=== PATIENT | male | born 1990 | race Caucasian/White ===

== ENCOUNTER 2020-04-12 08:12 | Emergency (ER) | payer SELFPAY ==
[2020-04-12] MEDS ORDERED: Ketorolac 15 MG/ML SDV IM ONE (08:41)
[2020-04-12] MEDS ORDERED: Acetaminophen 500 MG Tab PO ONE (08:41)
[2020-04-12] MEDS ORDERED: Dexamethasone 10 MG/ML SDV IM ONE (08:41)
[2020-04-12] MEDS ORDERED: Diazepam 2 MG Tab PO ONE (08:41)
--- NOTE | 2020-04-12 08:49 | EDM.PDOC ---
ED HPI GENERAL MEDICAL PROBLEM - General Chief Complaint: Back Pain or Injury Stated Complaint: MID BACK PAIN RT SIDE Time Seen by Provider: 04/12/20 08:17 Source of Information: Reports: Patient History Limitations: Reports: No Limitations - History of Present Illness INITIAL COMMENTS - FREE TEXT/NARRATIVE: 29M PMHx back pain from work injury presents for R sided middle/lower back pain worsening over last several days. 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 He feels that he was overusing his back a few days ago at work and afterwards had R middle/lower back pain. Took motrin and pain was getting better, but woke up around 3AM with acutely worse pain. Took motrin and was able to get back to sleep but woke up and pain had recurred. Feels he is unable to work today. Denies N/V, abdominal pain, hematuria/dysuria, urinary or bowel incontinence or retention, lower extremity muscle weakness/paralysis, or saddle/groin anaesthesia. Middle Back Pain Score (Numeric/FACES): 3 - Related Data Allergies Allergy/AdvReac Type Severity Reaction Status Date / Time No Known Allergies Allergy Verified 04/12/20 08:23 Home Meds: Home Meds Ibuprofen [Motrin] 600 mg PO Q6H PRN 10 Days #28 tab 04/12/20 [Rx] diazePAM [Valium] 1 mg PO TID PRN 3 Days #9 tab 04/12/20 [Rx] Past Medical History Musculoskeletal History: Reports: Back Pain, Chronic - Infectious Disease History Infectious Disease History: Reports: Chicken Pox Social & Family History - Family History Family Medical History: Noncontributory - Tobacco Use Smoking Status *Q: Current Every Day Smoker Years of Tobacco use: 4 Packs/Tins Daily: 1 Used Tobacco, but Quit: No Second Hand Smoke Exposure: No - Caffeine Use Caffeine Use: Reports: Coffee, Energy Drinks - Recreational Drug Use Recreational Drug Use: No ED ROS GENERAL - Review of Systems Review Of Systems: Comprehensive ROS is negative, except as noted in HPI. ED EXAM,LOWER BACK PAIN/INJURY - Physical Exam Exam: See Below Exam Limited By: No Limitations General Appearance: Alert, WD/WN, No Apparent Distress Throat/Mouth: Normal Voice, No Airway Compromise Head: Atraumatic, Normocephalic Neck: Normal Inspection Respiratory/Chest: No Respiratory Distress Cardiovascular: Normal Peripheral Pulses GI/Abdominal: Soft, Non-Tender Back Exam: Normal Inspection, Muscle Spasm, Paraspinal Tenderness. No: CVA Tenderness (L), CVA Tenderness (R), Vertebral Tenderness Extremities: Normal Inspection Neurological: Alert, Normal Mood/Affect Psychiatric: Normal Affect, Normal Mood Skin Exam: Warm, Dry, Intact, Normal Color, No Rash Course - Vital Signs Last Recorded V/S: Last Vital Signs Temp 97.3 F 04/12/20 08:23 Pulse 67 04/12/20 08:23 Resp 13 04/12/20 08:23 BP 123/86 04/12/20 08:23 Pulse Ox 99 04/12/20 08:23 - Orders/Labs/Meds Meds: Medications Discontinued Medications Generic Name Dose Route Start Last Admin Trade Name Freq PRN Reason Stop Dose Admin Acetaminophen 1,000 mg 04/12/20 08:41 04/12/20 08:57 Tylenol Extra Strength PO 04/12/20 08:42 1,000 mg ONETIME ONE Administration Dexamethasone 8 mg 04/12/20 08:41 04/12/20 08:57 Dexamethasone IM 04/12/20 08:42 8 mg ONETIME ONE Administration Diazepam 2 mg 04/12/20 08:41 04/12/20 08:57 Valium PO 04/12/20 08:42 2 mg ONETIME ONE Administration Ketorolac Tromethamine 15 mg 04/12/20 08:41 04/12/20 08:57 Toradol IM 04/12/20 08:42 15 mg ONETIME ONE Administration - Re-Assessments/Exams Free Text/Narrative Re-Assessment/Exam: 04/12/20 08:47 Will treat back pain symptomatically with toradol/decadron/tylenol/valium. Low suspicion clinically serious causes of back pain in absence of red flag signs/symptoms. Low suspicion renal stone as patient has no urinary symptoms and known work injury/overuse. Departure - Departure Time of Disposition: 08:54 Disposition: Home, Self-Care 01 Condition: Good Clinical Impression: Back pain Qualifiers: Back pain location: low back pain Chronicity: acute Back pain laterality: right Sciatica presence: without sciatica Qualified Code(s): M54.5 - Low back pain - Discharge Information Prescriptions: Ibuprofen [Motrin] 600 mg PO Q6H PRN 10 Days #28 tab PRN Reason: Pain diazePAM [Valium] 1 mg PO TID PRN 3 Days #9 tab PRN Reason: Muscle Spasm Referrals: PCP,None [Primary Care Provider] - Forms: ED Department Discharge, ED Return to Work/School Form Additional Instructions: The following information is given to patients seen in the emergency department who are being discharged to home. This information is to outline your options for follow-up care. We provide all patients seen in our emergency department with a follow-up referral. The need for follow-up, as well as the timing and circumstances, are variable depending upon the specifics of your emergency department visit. If you don't have a primary care physician on staff, we will provide you with a referral. We always advise you to contact your personal physician following an emergency department visit to inform them of the circumstance of the visit and for follow-up with them and/or the need for any referrals to a consulting specialist. The emergency department will also refer you to a specialist when appropriate. This referral assures that you have the opportunity for follow-up care with a specialist. All of these measure are taken in an effort to provide you with optimal care, which includes your follow-up. Under all circumstances we always encourage you to contact your private physician who remains a resource for coordinating your care. When calling for follow-up care, please make the office aware that this follow-up is from your recent emergency room visit. If for any reason you are refused follow-up, please contact the [facility] Emergency Department at and asked to speak to the emergency department charge nurse. Please follow up with your primary care physician. If you do not have a primary care physician, see below: [facility] [address] [place] [id number] [facility] [address] [place] [address] We unfortunately do not have a local neurosurgeon; most primary physicians will be comfortable ordering an MRI for you, but you may require follow-up with a specialist. [facility] is the closest neurosurgery program I know for referral. Their phone number is [phone]. Ask for the neurosurgery department. Sepsis Event Note (ED) - Evaluation Sepsis Screening Result: No Definite Risk - Focused Exam Vital Signs: Vital Signs Temp Pulse Resp BP Pulse Ox 04/12/20 08:23 97.3 F 67 13 123/86 99
== END 2020-04-12 09:20 | disposition home or self-care (01) ==
LOC: MW.ED 08:12
DX: M54.5 Low back pain (principal); F17.210 Nicotine dependence, cigarettes, uncomplicated
CPT/HCPCS: 96372; 99283; A9270; J1100; J1885